=== PATIENT | female | born 1950 | race Caucasian/White ===

== ENCOUNTER 2024-12-24 01:47 | Observation (INO) ==
[2024-12-24] MEDS: ASPIRIN 81 MG TAB.CHEW PO ONE (01:59)
--- NOTE | 2024-12-24 02:00 | Emergency Department Note ---
HPI - Chest Pain General Chief Complaint: Chest Pain Stated Complaint: chest pain Time Seen by Provider: 12/24/24 01:52 Source: patient, caregiver and medical record Mode of arrival: Stretcher Limitations: physical limitation History of Present Illness HPI narrative: 74-year-old female [facility] for chest pain with nausea and vomiting, on arrival patient remains nauseated reports that she is hurting in her right shoulder and arm at the distal end with no reported shortness of breath. MD complaint: Reports chest pain Pertinent past history: Reports other (CVA) Onset (ago): hour(s) Timing of current episode: Reports episodic and still present Prior episodes: No (Per patient) Onset: Reports during rest Pain location: Reports substernal Pain radiation: Reports right arm and right shoulder Severity: moderate Quality: Reports tightness and aching Relieving factors: Reports nothing Exacerbating factors: Reports exertion Context: Reports recent immobilization Associated symptoms: Reports nausea and vomiting Treatment prior to arrival: Reports none Risk Factors Coronary artery disease risk factors: Reports none Thoracic aortic dissection risk factors: Reports none Pulmonary embolism risk factors: Reports immobilization Related Data On Oral Contraceptives: No Allergies Allergy/AdvReac Type Severity Reaction Status Date / Time caffeine Allergy Mild Verified 12/24/24 02:13 irbesartan Allergy Mild Verified 12/24/24 02:13 promethazine (From Phenergan) Allergy Mild Verified 12/24/24 02:13 Review of Systems Status of ROS 10 or more systems reviewed and unremark able except as noted in history and below Cardiovascular Reports: chest pain Gastrointestinal Reports: nausea and vomiting Musculoskeletal Reports: extremity pain Neurological Reports: weakness in extremities Psychiatric Reports: anxiety Exam Constitutional: normal general appearance, distress noted (moderate), average body habitus, limitations noted (physical limitations) (Residual deficits on the left side from CVA) and alert Vital Signs - 24 hr 12/24/24 01:47 12/24/24 01:47 12/24/24 02:30 Temperature 97.8 F Pulse Rate 81 74 Respiratory Rate 14 14 Blood Pressure 107/57 112/61 Pulse Oximetry 97 97 96 Oxygen Delivery Me thod Room Air Room Air Room Air 12/24/24 03:00 12/24/24 03:30 12/24/24 04:00 Temperature Pulse Rate 78 82 78 Respiratory Rate 14 14 14 Blood Pressure 129/61 121/73 124/60 Pulse Oximetry 96 97 96 Oxygen Delivery Me thod Room Air Room Air Room Air 12/24/24 04:30 12/24/24 05:00 12/24/24 05:30 Temperature Pulse Rate 80 80 81 Respiratory Rate 14 14 14 Blood Pressure 123/61 130/52 130/68 Pulse Oximetry 96 97 96 Oxygen Delivery Ks thod Room Air Room Air Room Air 12/24/24 06:00 12/24/24 06:30 Temperature Pulse Rate 75 74 Respiratory Rate 14 12 Blood Pressure 111/61 118/62 Pulse Oximetry 96 96 Oxygen Delivery Ks thod Room Air Room Air HENMT: normocephalic, head/scalp atraumatic, hearing grossly normal bilaterally, external ears normal, external nose normal, oral mucous membranes normal, oropharynx normal, dentition normal and gingiva normal Eyes: PERRL, EOMs intact bilaterally, conjunctivae normal, no scleral icterus, no papilledema, normal visual lehman by confrontation, alignment normal, periorbital findings normal and no nystagmus Neck/C-Spine: visual inspection normal, trachea midline, cervical spine nontender, cervical full ROM noted, supple and no meningeal signs Lymph: no lymphadenopathy noted and no lymphedema noted Chest: inspection of chest normal Respiratory: breath sounds equal bilaterally, normal respiratory effort, clear to auscultation bilaterally, no wheezes, no rales, no retractions and no use of accessory muscles Cardiovascular: normal heart rate noted, regular rhythm noted, no gallop, no murmur, no JVD, peripheral pulses 2+ throughout and no additional abnormal heart sounds Patient has substernal chest pain radiates into the right shoulder and right arm that started earlier this evening. Gastrointestinal: abdomen normal to inspection, abdomen soft to palpation, nontender to palpation, nondistended, normoactive bowel sounds, no hepatosplenomegaly, no masses, no pulsatile mass and no ascites Patient denies abdominal pain but is nauseated and does have noted vomiting. Genitourinary: no CVA tenderness and bladder normal to palpation Back/Pelvis: spine normal to inspection Extremities: normal to inspection, normal to palpation, no tenderness, full ROM, no joint enlargement and no deformity Residual weakness from prior CVA to the left side. 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 Psychiatry: Mental Status Exam documented within this Exam's Psych section mental status grossly normal, oriented x3 (Patient is alert and oriented to her normal state), thought process normal, cooperative, affect abnormality noted (flat) and psychomotor activity normal Feel stressed/tense/nervous/anxious/difficulty sleeping: to some extent Life stressor details: Current medical condition Skin: skin color abnormal Reports (pale), no rash, no lesions, no ecchymosis noted, no wounds, no lacerations, skin turgor normal, no jaundice, no petechiae, no mottling, nails normal and no alopecia Course Course Hospital Course: 74-year-old female that presented to the ER from the [facility] for chest pain and vomiting rest has been evaluated by physical exam, medical record review, CBC, CMP, urinalysis, serial troponins, EKG, and plain film chest x-ray with results as noted in charting. Patient's medical record review reveals DNR for patient that is specific to no transfer patient to an outside facility, CBC is within normal limits, CMP is within normal limits, serial troponins have returned elevated, EKG is as documented in chart, plain film chest x-ray shows no acute cardiopulmonary process. Patient's urinalysis is free from any signs of urinary tract infection and patient's nausea has been controlled with administration of Zofran. Contacted patient's family concerning the need for transfer or wishes of the family who have advised a standby the DNR and do not wish the patient to be transferred anywhere and would like her to be care and comfort measures only, patient [facility] be [facility] floor for control of her nausea vomiting and pain control. Vital Signs Vital signs: Vital Signs Temperature 97.8 F 12/24/24 01:47 Pulse Rate 81 12/24/24 01:47 Respiratory Rate 14 12/24/24 01:47 Blood Pressure 107/57 12/24/24 01:47 Pulse Oximetry 97 12/24/24 01:47 Oxygen Delivery Method Room Air 12/24/24 01:47 Temperature 97.8 F 12/24/24 01:47 Pulse Rate 74 12/24/24 06:30 Respiratory Rate 12 12/24/24 06:30 Blood Pressure 118/62 12/24/24 06:30 Pulse Oximetry 96 12/24/24 06:30 Oxygen Delivery Method Room Air 12/24/24 06:30 MDM - Chest Pain MDM Narrative Medical decision making narrative: Medical decision making involved physical exam, medical record review, CBC, CMP, urinalysis, serial troponins, EKG, and plain film chest x-ray. Differential Diagnosis Differential diagnosis: Likely stable angina, unstable angina pectoris, atypical chest pain, st elevation myocardial infarction and chest pain Medical Records Data Attestation: I reviewed the patient's medical records. Lab Data Attestation: I reviewed the patient's lab results. Labs: Lab Results 12/24/24 12/24/24 12/24/24 Range/Units 02:00 03:40 04:00 WBC 9.5 H (4.3-9.3) K/uL RBC 4.7 (4.00-5.50) M/uL Hgb 13.6 (12.5-15.8) gm/dL Hct 41.4 (35.9-46.7) % MCV 89.0 (81.0-93.7) fl MCH 29.3 (27.6-32.2) pg MCHC 33.0 L (33.1-35.3) g/dl RDW 15.2 H (11.4-14.2) % Plt Count 279 (152-353) K/uL MPV 9.5 (6.9-10.8) fl Gran % 68.7 (47.8-71.3) % Lymph % (Auto) 21.4 (20.0-43.0) % [place] % (Auto) 6.4 (3.6-9.8) % Eos % (Auto) 3.1 H (0.4-2.8) % Baso % (Auto) 0.4 (0.1-0.85) Lymph # (Auto) 2.0 (1.1-3.1) [place] # (Auto) 0.6 L (1.1-3.1) Eos # (Auto) 0.3 H (0.0-0.2) Baso # (Auto) 0.0 (0.0-0.1) Absolute Gran (auto) 6.5 H (2.3-6.0) Sodium 139 (136-145) mmol/L Potassium 4.2 (3.6-5.2) mmol/L Chloride 104.0 (98-107) mmol/L Carbon Dioxide 28 (21-32) mmol/L Anion Gap 7.0 (4-14) mEq/L BUN 15 (7-18) mg/dL Creatinine 0.6 (0.6-1.3) mg/dL Estimated GFR 95.3 (>59.9) Glucose 103 (70-110) mg/dL Calcium 9.1 (8.5-10.1) mg/dL Total Bilirubin 0.64 (0.0-1.0) mg/dL AST 21 (15-37) U/L ALT 14 L (30-65) U/L Alkaline Phosphatase 81 (50-136) U/L Troponin I High Sens 67.60 H* 81.40 H* (4.0-60.4) ng/L Total Protein 7.1 (6.4-8.2) g/dL Albumin 3.2 L (3.4-5.0) g/dL Urine Color Yellow (STRAW/YELL.) Urine Appearance Clear (CLEAR) Ur Specific [place] 1.030 (1.001-1.035) Urine Protein Negative (NEGATIVE) Urine Glucose (UA) Normal (NORMAL) Urine Ketones Negative (NEGATIVE) Urine Occult Blood Negative (NEG - TRACE) Urine Nitrite Negative (NEGATIVE) Urine Bilirubin Negative (NEGATIVE) Urine Urobilinogen Normal (NORMAL) Ur Leukocyte Esterase Negative (NEGATIVE) Fluid pH 5.0 (5 - 9) Imaging Data Imaging ordered: Chest x-ray Attestation: I have reviewed the pertinent imaging results. Radiologist's impression: EXAM: XR CHEST 1V HISTORY: dyspneadyspnea; CHEST PAIN, SOB COMPARISON: None available. FINDINGS: The trachea is midline. The cardiac silhouette is unremarkable . The lungs are clear without focal infiltrate or effusion. The bony thorax is unremarkable. IMPRESSION: Normal chest THIS IS AN ELECTRONICALLY VERIFIED FINAL REPORT 12/24/2024 6:01 AM - Electronically signed by Robin Montana MD ECG Data Attestation: I have reviewed the pertinent ECG results. Interpretation: Sinus rhythm rate 72 Normal P axis RR 828 AL 182 QT 389 P axis 27 QRS -13 T 60 Discharge Plan Discharge Patient Disposition: Admitted As Observation Condition: Stable Clinical Impression: Chest pain, Elevated troponin, Intractable nausea and vomiting, Need for comfort care, At risk for inadequate pain control Time of Disposition: 07:00 [facility] Medical History (Updated 12/24/24 @ 02:15 by Monique Lucio RN) Dysarthria and anarthria Cognitive communication deficit Unspecified urinary incontinence Dysphagia, oral phase Overactive bladder Collapsed vertebra, not elsewhere classified, site unspecified, subsequent encounter for fracture with routine healing Hemiplegia and hemiparesis following cerebral infarction affecting left non- dominant side 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
[2024-12-24] MEDS ORDERED: ONDANSETRON HCL/PF 4 MG/2 ML VIAL ONE (02:02)
[2024-12-24] MEDS: ONDANSETRON HCL/PF 4 MG/2 ML VIAL IVP ONE (02:09)
[2024-12-24 02:40] LABS: Eosinophils#(Absolute)Auto 0.3 (0.0-0.2); Monocytes #(Absolute)- Auto 0.6 (1.1-3.1)
[2024-12-24 02:42] LABS: Basophils%(Percent) Auto 0.4 (0.1-0.85); Eosinophils%(Percent) Auto 3.1 % (0.4-2.8); Granulocytes % - Auto 68.7 % (47.8-71.3); Granulocytes#(Absolute)- Auto 6.5 (2.3-6.0); Hematocrit 41.4 % (35.9-46.7); Monocytes %(Percent)- Auto 6.4 % (3.6-9.8); Platelet Count 279 K/uL (152-353); White Blood Count 9.5 K/uL (4.3-9.3)
[2024-12-24 02:43] LABS: Potassium 4.2 mmol/L (3.6-5.2)
[2024-12-24 03:50] LABS: Urine Appearance CLEAR (CLEAR); Urine Blood NEGATIVE (NEG - TRACE); Urine Color YELLOW (STRAW/YELL.); Urine Urobilinogen Normal (NORMAL)
[2024-12-24] MEDS ORDERED: MAGNESIUM, ALUMINUM HYDROXIDE 30 ML ORAL.SUSP PO PRN (10:00)
[2024-12-24] MEDS ORDERED: MORPHINE SULFATE 4 MG/ML CARTRIDGE IV PRN (10:00)
[2024-12-24] MEDS ORDERED: ONDANSETRON HCL/PF 4 MG/2 ML VIAL INJ PRN (10:00)
[2024-12-24] MEDS ORDERED: DOCUSATE SODIUM 100 MG CAPSULE PO PRN (10:00)
--- NOTE | 2024-12-24 10:07 | History & Physical Report ---
H&P: HPI History of Present Illness Chief complaint: chest pain,elevated troponin,care and comfort mike Narrative: A 74-year-old female wheeled in her bed to the ER from the [facility] for chest pain with nausea and vomiting starting this am prior to arrival, on arrival patient remains nauseated reports that she is hurting in her right shoulder and arm at the distal end with no reported shortness of breath. Patient has contracture on left extremities secondary to previous stroke. Has some dysphagia but is able to eat and take her pills per shelter staff and the patient Review of Systems Status of ROS 10 or more systems reviewed and unremark able except as noted in history and below Constitutional Reports: fatigue and malaise; Denies: fever, chills, change in weight or change in sleep pattern Eyes Denies: change in vision, blurry vision, blind spots or light sensitivity Ears, nose, mouth, and throat Reports: difficulty swallowing; Denies: throat pain, neck pain, throat swelling, hoarseness, mouth pain or swelling of lips/tongue Cardiovascular Reports: chest pain; Denies: palpitations, edema, swelling of feet/ankles, lightheadedness or shortness of breath with exertion Respiratory Denies: shortness of breath, cough, wheezing, stridor, pain on inspiration or change in phlegm color Gastrointestinal Reports: nausea, vomiting, heartburn, constipation and difficulty swallowing; Denies: abdominal pain, coffee grounds in vomit, diarrhea, bloating or belching Genitourinary Reports: urinary incontinence; Denies: painful urination, urinary frequency, urinary urgency or blood in urine Musculoskeletal Reports: extremity pain (right arm to her fingers) and limited range of motion; Denies: back pain, neck pain, extremity swelling (left sided) or joint pain Integumentary/Breast Denies: rash, itching, redness, skin pain, skin tenderness or skin swelling Neurological Reports: numbness in extremities, weakness in extremities and difficulty communicating thoughts; Denies: headache or dizziness Psychiatric Reports: anxiety and difficulty concentrating; Denies: mood swings, panic attacks, change in sleep pattern, hopelessness, loss of interest, irritability or paranoia Endocrine Denies: excessive urination or excessive thirst Hematologic/Lymphatic Denies: easy bruising, easy bleeding or enlarged lymph nodes Allergic/Immunologic Denies: hives, throat swelling, tongue swelling, facial swelling or wheezing PFSH PFSH Medical History (Updated 12/24/24 @ 10:07 by Humaira Booker DO) Hypoalbuminemia Physical debility GERD with esophagitis Dysarthria and anarthria Cognitive communication deficit Unspecified urinary incontinence Dysphagia, oral phase Overactive bladder Collapsed vertebra, not elsewhere classified, site unspecified, subsequent encounter for fracture with routine healing Hemiplegia and hemiparesis following cerebral infarction affecting left non- dominant side 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 Meds Home Medications and Allergies Allergies Allergy/AdvReac Type Severity Reaction Status Date / Time caffeine Allergy Mild Verified 12/24/24 02:13 irbesartan Allergy Mild Verified 12/24/24 02:13 promethazine (From Phenergan) Allergy Mild Verified 12/24/24 02:13 Exam Constitutional: abnormal general appearance (disheveled), (chronically ill) and (frail appearing), distress noted (moderate), average body habitus, limitations noted (physical limitations) (Residual deficits on the left side from CVA) and alert Vital Signs - 24 hr 12/24/24 01:47 12/24/24 01:47 12/24/24 02:30 Temperature 97.8 F Pulse Rate 81 74 Respiratory Rate 14 14 Blood Pressure 107/57 112/61 Pulse Oximetry 97 97 96 Oxygen Delivery Me thod Room Air Room Air Room Air 12/24/24 03:00 12/24/24 03:30 12/24/24 04:00 Temperature Pulse Rate 78 82 78 Respiratory Rate 14 14 14 Blood Pressure 129/61 121/73 124/60 Pulse Oximetry 96 97 96 Oxygen Delivery Me thod Room Air Room Air Room Air 12/24/24 04:30 12/24/24 05:00 12/24/24 05:30 Temperature Pulse Rate 80 80 81 Respiratory Rate 14 14 14 Blood Pressure 123/61 130/52 130/68 Pulse Oximetry 96 97 96 Oxygen Delivery Sc thod Room Air Room Air Room Air 12/24/24 06:00 12/24/24 06:30 12/24/24 07:30 Temperature Pulse Rate 75 74 76 Respiratory Rate 14 12 Blood Pressure 111/61 118/62 117/64 Pulse Oximetry 96 96 [facility] 12/24/24 08:30 12/24/24 09:33 Temperature Pulse Rate 77 75 Respiratory Rate Blood Pressure 108/55 123/66 Pulse Oximetry 98 98 [facility]: normocephalic, head/scalp atraumatic, hearing grossly normal bilaterally, external ears normal, TMs normal bilaterally, nasal mucous membranes normal, external nose normal, oral mucous membranes normal, oropharynx normal, dentition abnormal and gingiva normal Eyes: PERRL, EOMs intact bilaterally, conjunctivae normal, no scleral icterus, papilledema noted, alignment normal, periorbital findings normal and no nystagmus Neck/C-Spine: abnormal to visual inspection, trachea midline, cervical spine nontender, abnormal cervical ROM noted, supple and no meningeal signs Lymph: no lymphadenopathy noted and no lymphedema noted Chest: inspection of chest normal and palpation of chest normal Respiratory: breath sounds equal bilaterally, normal respiratory effort, clear to auscultation bilaterally, no wheezes, no rales, no retractions and no use of accessory muscles Cardiovascular: normal heart rate noted, regular rhythm noted, no gallop, no rub, no murmur, no JVD, no clicks, peripheral pulses 2+ throughout and no additional abnormal heart sounds Patient has substernal chest pain radiates into the right shoulder and right arm that started earlier this evening. 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 Psychiatry: Mental Status Exam documented within this Exam's Psych section mental status grossly normal, oriented x3 (Patient is alert and oriented to her normal state), thought process abnormality noted, cooperative, affect abnormality noted (flat) and psychomotor abnormality noted (slow) and (disorganized) Feel stressed/tense/nervous/anxious/difficulty sleeping: to some extent Life stressor details: Current medical condition Skin: skin color abnormal Reports (pale), no rash, no lesions, ecchymosis noted, no wounds, no lacerations, skin turgor abnormal, no jaundice, no petechiae, mottling noted, nails abnormality noted and no alopecia Assessment and Plan Assessment and Plan (1) Unstable angina: Code(s): I20.0 - Unstable angina (2) Cardiac enzymes elevated: Code(s): R74.8 - Abnormal levels of other serum enzymes (3) Nausea & vomiting: Qualifiers: Vomiting type: bilious vomiting Qualified Code(s): R11.14 - Bilious vomiting Code(s): R11.2 - Nausea with vomiting, unspecified (4) GERD with esophagitis: Qualifiers: Esophagitis bleeding: without hemorrhage Qualified Code(s): K21.00 - Gastro-esophageal reflux disease with esophagitis, without bleeding Code(s): K21.00 - Gastro-esophageal reflux disease with esophagitis, without bleeding (5) Hypertensive heart disease without heart failure: Code(s): I11.9 - Hypertensive heart disease without heart failure (6) Hyperlipidemia, unspecified: Qualifiers: Hyperlipidemia type: mixed hyperlipidemia Qualified Code(s): E78.2 - Mixed hyperlipidemia Code(s): E78.5 - Hyperlipidemia, unspecified (7) Constipation, unspecified: Qualifiers: Constipation type: slow transit constipation Qualified Code(s): K59.01 - Slow transit constipation Code(s): K59.00 - Constipation, unspecified (8) Dysphagia following nontraumatic intracerebral hemorrhage: Code(s): I69.191 - Dysphagia following nontraumatic intracerebral hemorrhage (9) Physical debility: Code(s): R53.81 - Other malaise (10) Hypoalbuminemia: Code(s): E88.09 - Other disorders of plasma-protein metabolism, not elsewhere classified (11) End of life care: Code(s): Z51.5 - Encounter for palliative care Plan Cardiac monitoring with continuous pulse oximetry Hep-Lock Oxygen as needed for patient comfort and keep sats greater than 90% End-of-life issues discussed per ER doctor with family who declined transfer to [facility] or any invasive procedures to be done with the patient although they do wish for her to be in the hospital to monitor and assess how she responds with medications Lovenox 1 mg/mg started Twice daily Continue aspirin 81 mg daily Continue Plavix and 5 mg daily Continue Protonix 40 mg p.o. daily Zofran 4 mg IV every 4 hours as needed nausea vomiting Continue MiraLAX daily and Colace daily As noted in the notes from shelter Results Labs Labs: CBC 12/24/24 Range/Units 02:00 WBC 9.5 H (4.3-9.3) K/uL RBC 4.7 (4.00-5.50) M/uL Hgb 13.6 (12.5-15.8) gm/dL Hct 41.4 (35.9-46.7) % Plt Count 279 (152-353) K/uL Gran % 68.7 (47.8-71.3) % Lymph % (Auto) 21.4 (20.0-43.0) % [place] % (Auto) 6.4 (3.6-9.8) % Eos % (Auto) 3.1 H (0.4-2.8) % Baso % (Auto) 0.4 (0.1-0.85) Lymph # (Auto) 2.0 (1.1-3.1) [place] # (Auto) 0.6 L (1.1-3.1) Eos # (Auto) 0.3 H (0.0-0.2) Baso # (Auto) 0.0 (0.0-0.1) Absolute Gran (auto) 6.5 H (2.3-6.0) CMP 12/24/24 02:00 Sodium 139 Potassium 4.2 Chloride 104.0 Carbon Dioxide 28 BUN 15 Creatinine 0.6 Glucose 103 Calcium 9.1 Liver Function 12/24/24 Range/Units 02:00 Total Bilirubin 0.64 (0.0-1.0) mg/dL AST 21 (15-37) U/L ALT 14 L (30-65) U/L Alkaline Phosphatase 81 (50-136) U/L Albumin 3.2 L (3.4-5.0) g/dL Urine 12/24/24 03:40 Urine Color Yellow Urine Appearance Clear Ur Specific [place] 1.030 Urine Protein Negative Urine Glucose (UA) Normal Pulse Oximetry Attestation: I have reviewed the pertinent pulse oximetry results. ECG Attestation: I have reviewed the pertinent ECG results. Prior ECG tracings: available for review Imaging Imaging ordered: Chest x-ray Radiologist's impression: XR CHEST 1V HISTORY: dyspneadyspnea; CHEST PAIN, SOB COMPARISON: None available. FINDINGS: The trachea is midline. The cardiac silhouette is unremarkable . The lungs are clear without focal infiltrate or effusion. The bony thorax is unremarkable. IMPRESSION: Normal chest
[2024-12-24 10:38] VITALS: RESP 20
[2024-12-24 11:36] VITALS: BP 106/65; PULSE 76; TEMP 98.3
[2024-12-24] MEDS ORDERED: ASPIRIN 81 MG TABLET.DR PO SCH (12:00)
[2024-12-24] MEDS: carvediloL 3.125 MG TABLET PO SCH (12:34)
[2024-12-24] MEDS: ENOXAPARIN SODIUM 60 MG/0.6 ML SYRINGE SUBQ SCH (12:34)
[2024-12-24] MEDS: CLOPIDOGREL BISULFATE 75 MG TABLET PO SCH (12:34)
[2024-12-24] MEDS: PANTOPRAZOLE SODIUM 40 MG TABLET.DR PO SCH (12:35)
--- NOTE | 2024-12-24 14:15 | Discharge Summary ---
DS: Providers Provider Date of admission: 12/24/24 09:16 Primary care physician: Vito Chavez MD Admitting clinician: Mike Tang Attending physician on admission: Humaira Booker Attending physician on discharge: Humaira Booker Discharging clinician: Humaira Booker Anticipated date of discharge: 12/24/24 DS: Diagnosis Discharge Diagnosis (1) NSTEMI (non-ST elevated myocardial infarction): (2) Unstable angina: (3) Cardiac enzymes elevated: (4) Nausea & vomiting: Qualifiers: Vomiting type: bilious vomiting Qualified Code(s): R11.14 - Bilious vomiting (5) GERD with esophagitis: Qualifiers: Esophagitis bleeding: without hemorrhage Qualified Code(s): K21.00 - Gastro-esophageal reflux disease with esophagitis, without bleeding (6) Hypertensive heart disease without heart failure: (7) Hyperlipidemia, unspecified: Qualifiers: Hyperlipidemia type: mixed hyperlipidemia Qualified Code(s): E78.2 - Mixed hyperlipidemia (8) Constipation, unspecified: Qualifiers: Constipation type: slow transit constipation Qualified Code(s): K59.01 - Slow transit constipation (9) Dysphagia following nontraumatic intracerebral hemorrhage: (10) Physical debility: (11) Hypoalbuminemia: (12) End of life care: DS: Summary Hospital Course Hospital Course: 74-year-old female that presented to the ER from the [place] for chest pain and vomiting rest has been evaluated by physical exam, medical record review, CBC, CMP, urinalysis, serial troponins, EKG, and plain film chest x-ray with results as noted in charting. Patient's medical record review reveals DNR for patient that is specific to no transfer patient to an outside facility, CBC is within normal limits, CMP is within normal limits, serial troponins have returned elevated, EKG is as documented in chart, plain film chest x-ray shows no acute cardiopulmonary process. Patient's urinalysis is free from any signs of urinary tract infection and patient's nausea has been controlled with administration of Zofran. Contacted patient's family concerning the need for transfer or wishes of the family who have advised a standby the DNR and do not wish the patient to be transferred anywhere and would like her to be care and comfort measures only, patient will be admitted to the [facility] floor for control of her nausea vomiting and pain control. Patient had an more emesis or nausea when she met [facility] floor was able to tolerate a meal was able to carry on conversation with the nurse and myself. Troponin on 12/24/2024 at 2 AM was 67.6 repeat at 4 AM was 81.4 final repeat at 6:10 AM showed 2000 473.10. Despite the changes patient denies any further chest pain. Patient tolerated Lovenox aspirin Plavix as given to her on admission to [facility] without any difficulty End-of-life issues discussed with granddaughter and patient again in the face of the rise in troponin and risk for her continued morbidity mortality and inability to move around and have energy. Patient states she does not want to and is willing to go to tertiary care center or place with her seamer operator for further workup and evaluation and cath if warranted per seamer operator. Status at Discharge Functional status at discharge: bed bound Overall status at discharge: patient is not back to baseline Time Spent with Patient Time attestation: Total time spent providing and/or coordinating discharge services:81 Time spent: greater than 30 minutes Exam Constitutional: abnormal general appearance (disheveled), (chronically ill) and (frail appearing), distress noted (moderate), average body habitus, limitations noted (physical limitations) (Residual deficits on the left side from CVA) and alert Vital Signs - 24 hr 12/24/24 01:47 12/24/24 01:47 12/24/24 02:30 Temperature 97.8 F Pulse Rate 81 74 Pulse Rate [Right Brachial] Respiratory Rate 14 14 Blood Pressure 107/57 112/61 Blood Pressure [Ri ght Arm] Pulse Oximetry 97 97 96 Oxygen Delivery Me thod Room Air Room Air Room Air 12/24/24 03:00 12/24/24 03:30 12/24/24 04:00 Temperature Pulse Rate 78 82 78 Pulse Rate [Right Brachial] Respiratory Rate 14 14 14 Blood Pressure 129/61 121/73 124/60 Blood Pressure [Ri ght Arm] Pulse Oximetry 96 97 96 Oxygen Delivery Me thod Room Air Room Air Room Air 12/24/24 04:30 12/24/24 05:00 12/24/24 05:30 Temperature Pulse Rate 80 80 81 Pulse Rate [Right Brachial] Respiratory Rate 14 14 14 Blood Pressure 123/61 130/52 130/68 Blood Pressure [Ri ght Arm] Pulse Oximetry 96 97 96 Oxygen Delivery Me thod Room Air Room Air Room Air 12/24/24 06:00 12/24/24 06:30 12/24/24 07:30 Temperature Pulse Rate 75 74 76 Pulse Rate [Right Brachial] Respiratory Rate 14 12 Blood Pressure 111/61 118/62 117/64 Blood Pressure [Ri ght Arm] Pulse Oximetry 96 96 98 Oxygen Delivery Me thod Room Air Room Air 12/24/24 08:30 12/24/24 09:23 12/24/24 09:23 Temperature 98.1 F Pulse Rate 77 Pulse Rate [Right Brachial] 77 Respiratory Rate 20 Blood Pressure 108/55 Blood Pressure [Ri ght Arm] 101/63 Pulse Oximetry 98 96 Oxygen Delivery Me thod Room Air Room Air 12/24/24 09:33 12/24/24 11:00 Temperature 98.3 F Pulse Rate 75 Pulse Rate [Right Brachial] 76 Respiratory Rate 20 Blood Pressure 123/66 Blood Pressure [Ri ght Arm] 106/65 Pulse Oximetry 98 97 Oxygen Delivery Me thod Room Air HENMT: normocephalic, head/scalp atraumatic, hearing grossly normal bilaterally, external ears normal, TMs normal bilaterally, nasal mucous membranes normal, external nose normal, oral mucous membranes normal, oropharynx normal, dentition abnormal and gingiva normal Eyes: PERRL, EOMs intact bilaterally, conjunctivae normal, no scleral icterus, papilledema noted, alignment normal, periorbital findings normal and no nystagmus Neck/C-Spine: abnormal to visual inspection, trachea midline, cervical spine nontender, abnormal cervical ROM noted, supple and no meningeal signs Lymph: no lymphadenopathy noted and no lymphedema noted Chest: inspection of chest normal and palpation of chest normal Respiratory: breath sounds equal bilaterally, normal respiratory effort, clear to auscultation bilaterally, no wheezes, no rales, no retractions and no use of accessory muscles Cardiovascular: normal heart rate noted, regular rhythm noted, no gallop, no rub, no murmur, no JVD, no clicks, peripheral pulses 2+ throughout and no additional abnormal heart sounds Patient has substernal chest pain radiates into the right shoulder and right arm that started earlier this evening. 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 Left right shoulder pain and arm pain with no crepitus on palpation, distal pulses are present CONCRETE SMOOTHER of less than 3, and neuro is intact. 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 Psychiatry: Mental Status Exam documented within this Exam's Psych section mental status grossly normal, oriented x3 (Patient is alert and oriented to her normal state), thought process abnormality noted, cooperative, affect abnormality noted (flat) and psychomotor abnormality noted (slow) and (disorganized) Feel stressed/tense/nervous/anxious/difficulty sleeping: to some extent Life stressor details: Current medical condition Skin: skin color abnormal Reports (pale), no rash, no lesions, ecchymosis noted, no wounds, no lacerations, skin turgor abnormal, no jaundice, no petechiae, mottling noted, nails abnormality noted and no alopecia DS: Data Data Completed and Pending Labs on day of discharge: Labs from last 24 hours 12/24/24 12/24/24 12/24/24 10:00 04:00 03:40 WBC RBC Hgb Hct MCV MCH MCHC RDW Plt Count MPV Gran % Lymph % (Auto) Webb % (Auto) Eos % (Auto) Baso % (Auto) Lymph # (Auto) Webb # (Auto) Eos # (Auto) Baso # (Auto) Absolute Gran (auto) Sodium Potassium Chloride Carbon Dioxide Anion Gap BUN Creatinine Estimated GFR Glucose Calcium Total Bilirubin AST ALT Alkaline Phosphatase Troponin I High Sens 2473.10 H* 81.40 H* Total Protein Albumin Urine Color Yellow Urine Appearance Clear Ur Specific [place] 1.030 Urine Protein Negative Urine Glucose (UA) Normal Urine Ketones Negative Urine Occult Blood Negative Urine Nitrite Negative Urine Bilirubin Negative Urine Urobilinogen Normal Ur Leukocyte Esterase Negative Fluid pH 5.0 12/24/24 02:00 WBC 9.5 H RBC 4.7 Hgb 13.6 Hct 41.4 MCV 89.0 MCH 29.3 MCHC 33.0 L RDW 15.2 H Plt Count 279 MPV 9.5 Gran % 68.7 Lymph % (Auto) 21.4 Webb % (Auto) 6.4 Eos % (Auto) 3.1 H Baso % (Auto) 0.4 Lymph # (Auto) 2.0 Webb # (Auto) 0.6 L Eos # (Auto) 0.3 H Baso # (Auto) 0.0 Absolute Gran (auto) 6.5 H Sodium 139 Potassium 4.2 Chloride 104.0 Carbon Dioxide 28 Anion Gap 7.0 BUN 15 Creatinine 0.6 Estimated GFR 95.3 Glucose 103 Calcium 9.1 Total Bilirubin 0.64 AST 21 ALT 14 L Alkaline Phosphatase 81 Troponin I High Sens 67.60 H* Total Protein 7.1 Albumin 3.2 L Urine Color Urine Appearance Ur Specific [place] Urine Protein Urine Glucose (UA) Urine Ketones Urine Occult Blood Urine Nitrite Urine Bilirubin Urine Urobilinogen Ur Leukocyte Esterase Fluid pH Discharge Plan Discharge Disposition: Xfer Short-Term Hosp Condition: Stable Anticipated Discharge Date/Time: 12/24/24 14:13 Discharge Medications: Continued aspirin [Adult Aspirin Regimen] 81 mg tablet,delayed release (DR/EC) 81 mg PO DAILY losartan 50 mg tablet 50 mg PO DAILY atorvastatin 40 mg tablet 40 mg PO BEDTIME amlodipine 10 mg tablet 10 mg PO DAILY clopidogrel 75 mg tablet 75 mg PO DAILY pantoprazole 40 mg tablet,delayed release (DR/EC) 40 mg PO DAILY docusate sodium [Colace] 100 mg capsule 100 mg PO BID epinephrine 0.3 mg/0.3 mL auto-injector 0.3 ml IM .q 24 hours PRN (Reason: anaphylaxis) meclizine 25 mg tablet 25 mg PO .q 8h PRN (Reason: dizziness) polyethylene glycol 3350 [Miralax] 17 gram powder in packet 17 g PO BEDTIME PRN (Reason: constipation) nystatin 100,000 unit/gram powder 1 applic TOPICAL DAILY PRN (Reason: yeast) tramadol 50 mg tablet 50 mg PO Q8H PRN (Reason: pain) acetaminophen [Tylenol] 325 mg tablet 650 mg PO Q6H PRN (Reason: fever or pain) Activity: other Diet: other Diet Detail: NPO until cleared by the PCU care team Hospital Course: 74-year-old female that presented to the ER from the [place] for chest pain and vomiting rest has been evaluated by physical exam, medical record review, CBC, CMP, urinalysis, serial troponins, EKG, and plain film chest x-ray with results as noted in charting. Patient's medical record review reveals DNR for patient that is specific to no transfer patient to an outside facility, CBC is within normal limits, CMP is within normal limits, serial troponins have returned elevated, EKG is as documented in chart, plain film chest x-ray shows no acute cardiopulmonary process. Patient's urinalysis is free from any signs of urinary tract infection and patient's nausea has been controlled with administration of Zofran. Contacted patient's family concerning the need for transfer or wishes of the family who have advised a standby the DNR and do not wish the patient to be transferred anywhere and would like her to be care and comfort measures only, patient will be admitted to the [facility] for control of her nausea vomiting and pain control. Patient had an more emesis or nausea when she met [facility] floor was able to tolerate a meal was able to carry on conversation with the nurse and myself. Troponin on 12/24/2024 at 2 AM was 67.6 repeat at 4 AM was 81.4 final repeat at 6:10 AM showed 2000 473.10. Despite the changes patient denies any further chest pain. Patient tolerated Lovenox aspirin Plavix as given to her on admission to [facility] without any difficulty End-of-life issues discussed with granddaughter and patient again in the face of the rise in troponin and risk for her continued morbidity mortality and inability to move around and have energy. Patient states she does not want to and is willing to go to tertiary care center or place with her seamer operator for further workup and evaluation and cath if warranted per seamer operator. Print Language: Salvadorean Follow-Ups: Vito Chavez MD [Primary Care Provider, Medical]
[2024-12-25] MEDS ORDERED: PANTOPRAZOLE SODIUM 40 MG VIAL IVP SCH (09:00)
[2024-12-25] MEDS ORDERED: ASPIRIN 81 MG TABLET.DR PO SCH (09:00)
== END 2024-12-24 14:30 | disposition short-term general hospital (02) ==
LOC: EDBD → ED 01:47 → MS 01:47
PROVIDERS: ADMIT Family Medicine; ATTEND Family Medicine
DX: Z51.5 Encounter for palliative care; I21.4 Non-ST elevation (NSTEMI) myocardial infarction; Z79.899 Other long term (current) drug therapy; R13.10 Dysphagia, unspecified; I69.392 Facial weakness following cerebral infarction; Z79.02 Long term (current) use of antithrombotics/antiplatelets; Z79.82 Long term (current) use of aspirin; K21.00 Gastro-esophageal reflux disease with esophagitis, without bleeding; E88.09 Other disorders of plasma-protein metabolism, not elsewhere classified; G47.33 Obstructive sleep apnea (adult) (pediatric); E78.2 Mixed hyperlipidemia; I69.354 Hemiplegia and hemiparesis following cerebral infarction affecting left non-dominant side; Z66 Do not resuscitate; K59.01 Slow transit constipation; R11.14 Bilious vomiting; Z88.8 Allergy status to other drugs, medicaments and biological substances; I11.9 Hypertensive heart disease without heart failure; R53.81 Other malaise; I69.191 Dysphagia following nontraumatic intracerebral hemorrhage